=== PATIENT | male | born 1995 | race Caucasian/White ===

== ENCOUNTER 2023-09-29 17:13 | Emergency (ER) | payer SELFPAY ==
[2023-09-29 17:16] VITALS: BP 147/93; PULSE 82; RESP 16; TEMP 36.6; O2SAT 99; BMI 28.8
--- NOTE | 2023-09-29 17:26 | ED_ITS ---
HPI - Abdominal Pain General Chief Complaint: Abdominal Pain Stated Complaint: Abdominal Pain Time Seen by Provider: 09/29/23 17:19 Source: patient Mode of arrival: walk-in History of Present Illness HPI narrative: 27-year-old male presents to the emergency department for abdominal pain. He states he's had it most of his life and it's in the epigastric area. He stuck his family doctor about it but never saw specialist. No trauma or fever. No constipation or diarrhea. He's been taking Pepcid and Pepto-Bismol and sometimes it helps. No fever chest pain or cough. He doesn't complain of back pain or dysuria. Related Data Home Medications Medication Instructions Recorded Confirmed No Known Home Medications 09/29/23 09/29/23 Allergies Allergy/AdvReac Type Severity Reaction Status Date / Time No Known Drug Allergies Allergy Verified 09/29/23 17:16 Review of Systems ROS Narrative A ten point review of systems is negative except as noted above. Exam Narrative Exam Narrative: Nurses note and vital signs reviewed and patient is not hypoxic. General: The patient appears well and in no apparent distress. Patient is resting comfortably on cart. Skin: Warm, dry, no pallor noted. There is no rash noted. Head: Normocephalic, atraumatic Eye: Normal conjunctiva, no drainage Ears, Nose, Mouth, and Throat: oral mucosa is moist. Nares patent. Cardiovascular: Regular Rate and Rhythm Respiratory: Patient is in no distress, no accessory muscle use, lungs are clear to auscultation, no wheezing, rales or rhonchi Back: non-tender GI: Normal bowel sounds, minimal tenderness to palpation across the upper abdomen, no masses appreciated. No rebound, guarding, or rigidity noted. Musculoskeletal: The patient has no evidence of calf tenderness, no pitting edema, symmetrical pulses noted bilaterally Neurological: A&O, normal speech Psychiatric: Cooperative Constitutional Vital Signs, click to edit/add: Last Vital Signs Temp 97.9 F 09/29/23 17:16 Pulse 82 09/29/23 17:16 Resp 16 09/29/23 17:16 BP 147/93 H 09/29/23 17:16 Pulse Ox 99 09/29/23 17:16 O2 Del Method Room Air 09/29/23 17:16 Course Vital Signs Vital signs: Vital Signs Temperature 97.9 F 09/29/23 17:16 Pulse Rate 82 09/29/23 17:16 Respiratory Rate 16 09/29/23 17:16 Blood Pressure 147/93 H 09/29/23 17:16 Pulse Oximetry 99 09/29/23 17:16 Oxygen Delivery Method Room Air 09/29/23 17:16 Temperature 97.9 F 09/29/23 17:16 Pulse Rate 82 09/29/23 17:16 Respiratory Rate 16 09/29/23 17:16 Blood Pressure 147/93 H 09/29/23 17:16 Pulse Oximetry 99 09/29/23 17:16 Oxygen Delivery Method Room Air 09/29/23 17:16 MDM - Abdominal Pain MDM Narrative Medical decision making narrative: his workup is negative. He's had this pain most of his life and he is referred to surgery for follow-up. He's never had endoscopy. Treatment diagnosis and follow-up were discussed with the patient. Differential Diagnosis Differential diagnosis: Likely abdominal pain, constipation, diverticulitis, gastroenteritis and pancreatitis Lab Data Attestation: I reviewed the patient's lab results. Labs: Lab Results 09/29/23 Range/Units 17:25 WBC 9.9 (4.0-11.0) 10^3/uL RBC 4.57 L (4.70-6.10) 10^6/uL Hgb 14.8 (14.0-18.0) g/dL Hct 43.0 (42.0-54.0) % MCV 94.1 H (80.0-94.0) fL MCH 32.4 (25.9-34.0) pg MCHC 34.4 (29.9-35.2) g/dL RDW 12.3 (11.0-15.0) % Plt Count 245 (150-450) 10^3/uL MPV 11.7 (9.5-13.5) fL Neut % (Auto) 64.0 (43.0-75.0) % Lymph % (Auto) 27.9 (20.5-60.0) % [place] % (Auto) 6.9 (1.7-12.0) % Eos % (Auto) 0.7 L (0.9-7.0) % Baso % (Auto) 0.3 (0.2-2.0) % Neut # (Auto) 6.3 (1.4-6.5) 10^3/uL Lymph # (Auto) 2.8 (1.2-3.8) 10^3/uL [place] # (Auto) 0.7 (0.3-0.8) 10^3/uL Eos # (Auto) 0.1 (0.0-0.7) 10^3/uL Baso # (Auto) 0.0 (0.0-0.1) 10^3/uL Abs Immat Gran (auto) 0.02 (0.00-0.03) 10^3/uL Imm/Tot Granulo (auto) 0.2 (0.0-0.5) % Sodium 140 (136-145) mmol/L Potassium 3.5 (3.5-5.1) mmol/L Chloride 103 (98-107) mmol/L Carbon Dioxide 27.0 (21.0-32.0) mmol/L Anion Gap 13.5 BUN 5.0 L (7.0-18.0) mg/dL Creatinine 0.87 (0.70-1.30) mg/dL Est GFR ( Amer) >60 (>=60) Est GFR (Non-Af Amer) >60 (>=60) BUN/Creatinine Ratio 5.7 Glucose 92 (74-106) mg/dL Calcium 8.7 (8.5-10.1) mg/dL Total Bilirubin 1.0 (0.2-1.0) mg/dL Direct Bilirubin 0.2 (0.0-0.2) mg/dL AST 10 L (15-37) U/L ALT 17 (16-63) U/L Alkaline Phosphatase 58 (46-116) U/L Total Protein 8.1 (6.4-8.2) g/dL Albumin 4.2 (3.4-5.0) g/dL Globulin 3.9 g/dL Albumin/Globulin Ratio 1.1 Amylase 25 (25-115) U/L Lipase 16.0 (16.0-77.0) U/L Discharge Plan Discharge Chief Complaint: Abdominal Pain Clinical Impression: Abdominal pain Patient Disposition: Home, Self-Care Time of Disposition Decision: 18:04 Condition: Good Prescriptions / Home Meds: No Action No Known Home Medications Instructions: Abdominal Pain (ED) Additional Instructions: and follow-up with Dr. White Stand Alone Forms: Portal Instructions Referrals: Physician,Non-Staff, MD [Primary Care Provider] - 1 week
[2023-09-29 17:32] LABS: Basophils Percent Auto 0.3 % (0.2-2.0); Eosinophils Absolute Auto 0.1 10^3/uL (0.0-0.7); Eosinophils Percent Auto 0.7 % (0.9-7.0); Hemoglobin 14.8 g/dL (14.0-18.0); Immature Granulocytes Abs Auto 0.02 10^3/uL (0.00-0.03); Immature Granulocytes Pct Auto 0.2 % (0.0-0.5); Lymphocytes Absolute Auto 2.8 10^3/uL (1.2-3.8); Lymphocytes Percent Auto 27.9 % (20.5-60.0); Mean Corpuscular HGB Conc 34.4 g/dL (29.9-35.2); Mean Corpuscular Hemoglobin 32.4 pg (25.9-34.0); Mean Corpuscular Volume 94.1 fL (80.0-94.0); Mean Platelet Volume 11.7 fL (9.5-13.5); Monocytes Absolute Auto 0.7 10^3/uL (0.3-0.8); Monocytes Percent Auto 6.9 % (1.7-12.0); Neutrophils Absolute Auto 6.3 10^3/uL (1.4-6.5); Platelet Count 245 10^3/uL (150-450); Red Blood Count 4.57 10^6/uL (4.70-6.10); Red Cell Distribution Width 12.3 % (11.0-15.0); White Blood Count 9.9 10^3/uL (4.0-11.0)
[2023-09-29 17:57] LABS: Alanine Aminotransferase 17 U/L (16-63); Albumin Globulin Ratio 1.1; Albumin Level 4.2 g/dL (3.4-5.0); Alkaline Phosphatase 58 U/L (46-116); Amylase 25 U/L (25-115); Anion Gap 13.5; Aspartate Amino Transferase 10 U/L (15-37); BUN Creatinine Ratio 5.7; Bilirubin Direct 0.2 mg/dL (0.0-0.2); Calcium 8.7 mg/dL (8.5-10.1); Chloride 103 mmol/L (98-107); Estimated GFR (African America >60 (>=60); Estimated GFR (Non-African Ame >60 (>=60); Globulin 3.9 g/dL; Glucose 92 mg/dL (74-106); Potassium 3.5 mmol/L (3.5-5.1); Sodium 140 mmol/L (136-145); Total Protein 8.1 g/dL (6.4-8.2)
[2023-09-29 18:12] VITALS: BP 141/91; PULSE 64; RESP 18; O2SAT 99
== END 2023-09-29 18:15 | disposition home or self-care (01) ==
PROVIDERS: Emergency Provider Emergency Medicine
DX: R10.9 Unspecified abdominal pain (principal)
CPT/HCPCS: 36415; 80048; 80076; 82150; 83690; 85025; 99283

== ENCOUNTER 2024-01-20 10:08 | Emergency (ER) | payer SELFPAY ==
[2024-01-20 10:19] VITALS: BP 130/79; PULSE 81; RESP 18; TEMP 37.2; O2SAT 98; BMI 28.9
--- OUTSIDE RECORDS SUMMARY | 2024-01-20 10:44 | XMS_ITS | CCD ---
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 Name Role Phone DR MOIZ PRICE Admitting Unavailable ROSY, DR VERA Primary Care Unavailable DEE, DR MOIZ Harp Attending Unavailable DEE, DR MOIZ Harp Consulting Unavailable JORY ULLOA Consulting Unavailable ROSY, DR VERA Primary Care Unavailable DEE, DR MOIZ Harp Attending Unavailable DEE, DR MOIZ Harp Consulting Unavailable DR MOIZ PRICE Admitting Unavailable Allergies Allergy Classification Reported Allergen(s) Allergy Type Date of Onset Reaction(s) Facility Anti-Epileptic Agents (2 sources) Phenytoin; Translations: [Tegretol] Drug Allergy 5 [facility] Methylphenidate (1 source) Methylphenidate Drug Allergy 5 [facility] Problems Active Problems Problem Classification Problem Date Documented Da te Episodic/Chronic Mood disorders (1 source) Major depressive disorder, single episode, unspecified; Translations: [YAZAN DEPRESS D/O SINGLE EPIS UNS] Onset: 04-07-2021 Chronic Open wounds of extremities (2 sources) Laceration without foreign body of left wrist, initial encounter; Translations: [Laceration without foreign body of left forearm, initial encounter] Onset: 05-31-2020 Episodic Substance-related disorders (1 source) Nicotine dependence, cigarettes, uncomplicated; Translations: [NICOTINE DEPEND CIGARETTES UNCOMP] Onset: 04-07-2021 Chronic Suicide and intentional self-inflicted injury (5 sources) Suicidal ideations; Translations: [Intentional self-harm by knife, initial encounter] Onset: 04-05-2021 Episodic Unclassified (1 source) CONTACT W/AND (SUSP) EXPOS COVID-19; Translations: [CONTACT W/AND (SUSP) EXPOS COVID-19] Onset: 04-07-2021 Past or Other Problems Problem Classification Problem Date Documented Da te Episodic/Chronic E Codes: Fall (1 source) Other fall on same level, initial encounter; Translations: [OTHER FALL ON SAME LEVEL INITIAL] Onset: 05-31-2020 Episodic Immunizations and screening for infectious disease (1 source) Encounter for immunization; Translations: [ENCOUNTER FOR IMMUNIZATION] Onset: 05-31-2020 Episodic Other injuries and conditions due to external causes (3 sources) Unspecified injury of left shoulder and upper arm, initial encounter; Translations: [UNS INJ LT SHOULDER UP ARM INITIAL] Onset: 05-30-2020 Episodic Results Test Name Value Interpretation Reference Range Facility ECG 12 lead ECGon 05-22-2021 ECG 12 lead ECG [facility] [address] [place] [id number] Electrocardiograph Report Signed Patient: Joey Long MR#: [id number] : 1995 Acct:[id number] Age/Sex: 25 / M ADM Date: 05/22/21 Loc: Room: [address] [place] [address] Type: ADM IN Attending Dr: Efra Ruiz MD Ordering Provider: Efra Ruiz MD Date of Service: 05/22/21 ECG/ECG 12 lead ECG: anti psychotic treatment Copies to: Test Reason : Blood Pressure : / mmHG Vent. Rate : 063 BPM Atrial Rate : 063 BPM P-R Int : 156 ms QRS Dur : 098 ms QT Int : 414 ms P-R-T Axes : 067 068 062 degrees QTc Int : 423 ms Normal sinus rhythm Normal ECG No previous ECGs available Confirmed by HERMELINDA BAKER DO ([id number]) on 05/22/2021 12:49:22 PM Referred By: Electronically Signed By:HERMELINDA BAKER DO Transcribed By: MUS Dictated By: Hermelinda Baker DO 05/22/21 0802 Signed By: 05/22/21 1249 Normal [facility] Lipid Panelon 05-22-2021 Cholesterol [Mass/Vol] 157 mg/dL Normal 140-200 [facility] Comment on above: Result Comment: Chol less than 200 mg/dl low risk Chol 201-239 mg/dl borderline risk Chol 240 mg/dl and greater high risk Performed By: #### V [id number], TSH3 wRFLX, LIPID #### [facility] [address] Cholesterol in HDL [Mass/Vol] 43 mg/dL Normal 29-71 [facility] Comment on above: Result Comment: HDL CHOL ATP-III CLASSIFICATION Cardiovascular Risk HDL > or equal to 60 mg/dL LOW HDL < 40 mg/dL HIGH Performed By: #### V [id number], TSH3 wRFLX, LIPID #### [facility] [address] Cholesterol.total/Cho lesterol in HDL [Mass ratio] 3.7 {ratio} Normal <5.0 [facility] Comment on above: Performed By: #### V [id number], TSH3 wRFLX, LIPID #### [facility] [address] LDL Cholesterol,Calculate d 99 mg/dL Normal 0-100 [facility] Comment on above: Result Comment: LDL ATP III CLASSIFICATION LDL less than 100 mg/dL Optimal LDL 100-129 mg/dL Near or above optimal LDL 130-159 mg/dL Borderline high LDL 160-189 mg/dL High LDL greater than 189 mg/dL Very high Performed By: #### V [id number], TSH3 wRFLX, LIPID #### [facility] [address] Triglyceride w/Reflex 75 mg/dL Normal 35-149 [facility] Comment on above: Result Comment: TRIG ATP III CLASSIFICATION TRIG less than 150 mg/dL Normal TRIG 150-199 mg/dL Borderline high TRIG 200-500 mg/dL High TRIG greater than 500 mg/dL Very high Standard traceable to the Center for Disease Conrtrol and Prevention (CDC) test method. Performed By: #### V [id number], TSH3 wRFLX, LIPID #### [facility] [address] [place] [id number] [facility] VLDL CHOLESTEROL 15 mg/dL Normal [facility] Comment on above: Performed By: #### V [id number], TSH3 wRFLX, LIPID #### [facility] [address] [place] [id number] [facility] Thyroid Stim Hormone w/Rflxo n 05-22-2021 Thyroid Stim Hormone w/Rflx 1.47 u[iU]/mL Normal 0.45-5.33 [facility] Comment on above: Performed By: #### V [id number], TSH3 wRFLX, LIPID #### [facility] [address] [place] [id number] [facility] Vitamin D 25 Hydroxy Totalon 05-22-2021 Vitamin D 25 Hydroxy Total 21.8 ng/mL Low 30-100 [facility] Comment on above: Result Comment: FARIDA MIN D STATUS 25(OH)VITAMIN D RANGE (ng/mL) Deficient <20 Insufficient 20 to <30 Sufficient 30 to 100 Reference: Beau MF,Abel MERIDA, Cheryl CANALES, et al. Evaluation,treatment, and prevention of vitamin D deficiency; an Endocrine Society clinical practice guideline. JCEM. 2010; 96(7):1911-30. PERFORMED BY: [address] [place] [address] PATHOLOGIST RAP ARTIST ARNOLD RUDOLPH M.D. Performed By: #### V [id number], TSH3 wRFLX, LIPID #### [facility] [address] [place] [id number] [facility] COVID-19 Antigenon 1 COVID-19 Antigen Healthcare Worker?: N Lloyd Reference Lloyd Reference Negative SARS-CoV+SARS-CoV-2 (COVID-19) Ag [Presence] in Respiratory specimen by Rapid immunoassay Negative for SARS Antigen by RHONDA COVID19 Blank Space Lloyd Disclaimer Negative results, from patients with symptom Lloyd Disclaimer onset beyond five days, should be treated as Lloyd Disclaimer presumptive and confirmation with a molecular Lloyd Disclaimer assay, if necessary, for patient management, Lloyd Disclaimer may be performed. Negative results do not rule Lloyd Disclaimer out COVID-19 and should not be used as the sole Lloyd Disclaimer basis for treatment or patient management Lloyd Disclaimer decisions, including infection control decisions. Lloyd Disclaimer Negative results should be considered in the Lloyd Disclaimer context of a patient's recent exposures, history Lloyd Disclaimer and the presence of clinical signs and symptoms Lloyd Disclaimer consistent with COVID-19. COVID19 Blank Space Lloyd Disclaimer The Lloyd SARS Antigen RHONDA does not differentiate Lloyd Disclaimer between SARS-CoV and SARS-CoV-2. COVID19 Blank Space Lloyd Disclaimer This test was developed and its performance Lloyd Disclaimer characteristic determined by [employer] and Lloyd Disclaimer validated at [facility]. This Lloyd Disclaimer test has not been FDA cleared or approved. This Lloyd Disclaimer test has been authorized by FDA under an Emergency Use Lloyd Disclaimer Authorization (EUA). This test has been validated Lloyd Disclaimer in accordance with the FDA's Guidance Document (Policy Lloyd Disclaimer for Diagnostics Testing in Laboratories Certified to Lloyd Disclaimer Perform High Complexity Testing under CLIA prior to Lloyd Disclaimer Emergency Use Authorization for Coronavirus Lloyd Disclaimer during the Public Health Emergency) Lloyd Disclaimer issued on February 25, 2020. This test is only authorized Lloyd Disclaimer for the duration of time the declaration that Lloyd Disclaimer circumstances exist justifying the authorization of Lloyd Disclaimer the emergency use of in vitro diagnostic tests for Lloyd Disclaimer detection of SARS-CoV-2 virus and/or diagnosis of Lloyd Disclaimer COVID-19 infection under section 564(b)(1) of the Lloyd Disclaimer Act, 21 U.S.C. 360bbb-3(b)(1), unless the Lloyd Disclaimer authorization is terminated or revoked sooner. PERFORMED BY: [place] [address] PATHOLOGIST RAP ARTIST ARNOLD RUDOLPH M.D. Normal [facility] Comment on above: Performed By: #### C OVID-19 TODD DESAI #### [facility] [address] Lipid Panelon 04-06-2021 Cholesterol [Mass/Vol] 214 mg/dL High 140-200 [facility] Comment on above: Result Comment: Chol less than 200 mg/dl low risk Chol 201-239 mg/dl borderline risk Chol 240 mg/dl and greater high risk Performed By: #### V [id number], CHUCK, LIPID, TSH3 wRFLX #### [facility] [address] [place] [address] Cholesterol in HDL [Mass/Vol] 48 mg/dL Normal 29-71 [facility] Comment on above: Result Comment: HDL CHOL ATP-III CLASSIFICATION Cardiovascular Risk HDL > or equal to 60 mg/dL LOW HDL < 40 mg/dL HIGH Performed By: #### V [id number], CHUCK, LIPID, TSH3 wRFLX #### [facility] [address] [place] [address] Cholesterol.total/Cho lesterol in HDL [Mass ratio] 4.5 {ratio} Normal <5.0 [facility] Comment on above: Performed By: #### V [id number], CHUCK, LIPID, TSH3 wRFLX #### [facility] [address] [place] [address] LDL Cholesterol,Calculate d 152 mg/dL High 0-100 [facility] Comment on above: Result Comment: LDL ATP III CLASSIFICATION LDL less than 100 mg/dL Optimal LDL 100-129 mg/dL Near or above optimal LDL 130-159 mg/dL Borderline high LDL 160-189 mg/dL High LDL greater than 189 mg/dL Very high Performed By: #### V [id number], CHUCK, LIPID, TSH3 wRFLX #### [facility] [address] Triglyceride w/Reflex 70 mg/dL Normal 35-149 [facility] Comment on above: Result Comment: TRIG ATP III CLASSIFICATION TRIG less than 150 mg/dL Normal TRIG 150-199 mg/dL Borderline high TRIG 200-500 mg/dL High TRIG greater than 500 mg/dL Very high Standard traceable to the Center for Disease Conrtrol and Prevention (CDC) test method. Performed By: #### V [id number], CHUCK, LIPID, TSH3 wRFLX #### [address] VLDL CHOLESTEROL 14 mg/dL Normal [facility] Comment on above: Performed By: #### V [id number], CHUCK, LIPID, TSH3 wRFLX #### [address] Salicylateon 04-06-2021 Salicylate < 4.0 Low 15.0-30.0 [facility] Comment on above: Result Comment: Erika ents treated with Sulfasalazine may generate a false high result for Salicylate. Patients treated with Sulfapyridine may generate a false low result for Salicylate. PERFORMED BY: [place] [address] PATHOLOGIST RAP ARTIST ARNOLD RUDOLPH M.D. Performed By: #### V [id number], CHUCK, LIPID, TSH3 wRFLX #### [address] Lloyd Ag Negativeon 04-06-20 21 Lloyd Ag Negative Negative Normal Negative [facility] Comment on above: Result Comment: This is a duplicate Lloyd SARS Antigen (RHNODA) result to be used for statistical tracking purpose only. PERFORMED BY: [place] [address] PATHOLOGIST RAP ARTIST ARNOLD RUDOLPH M.D. Performed By: #### C OVID-19 LLOYD, SOFIANEG #### [address] Thyroid Stim Hormone w/Rflxo n 04-06-2021 Thyroid Stim Hormone w/Rflx 2.74 u[iU]/mL Normal 0.45-5.33 [facility] Comment on above: Performed By: #### V [id number], CHUCK, LIPID, TSH3 wRFLX #### [facility] [address] [id number] [facility] Vitamin D 25 Hydroxy Totalon 04-06-2021 Vitamin D 25 Hydroxy Total 12.0 ng/mL Low 30-100 [facility] Comment on above: Result Comment: FARIDA MIN D STATUS 25(OH)VITAMIN D RANGE (ng/mL) Deficient <20 Insufficient 20 to <30 Sufficient 30 to 100 Reference: Beau MF,Abel NC, Cheryl CANALES, et al. Evaluation,treatment, and prevention of vitamin D deficiency; an Endocrine Society clinical practice guideline. JCEM. 2010; 96(7):1911-30. PERFORMED BY: [place] [address] PATHOLOGIST RAP ARTIST ARNOLD RUDOLPH M.D. Performed By: #### V [id number], CHUCK, LIPID, TSH3 wRFLX #### [facility] [address] [place] [address] ACETAMINOPHENon 04-05-2021 Acetaminophen [Mass/Vol] ug/mL Critically low 10.1-30.0 [facility] Comment on above: Performed By: #### E TH, CMP, ACET, SALYC #### [facility] [address] [place] [address] Erica Beena CBC AUTO DIFFon 04-05-2021 BASO # 0.0 103/ul Normal 0.0-0.1 [facility] Comment on above: Performed By: #### C BC #### [facility] [address] [place], [place] [phone] Erica Beena Basophils/100 WBC (Bld) 0.4 % Normal 0.2-2.0 [facility] Comment on above: Performed By: #### C BC #### [facility] [address] [place] [address] Erica Beena EO # 0.1 103/ul Normal 0.0-0.7 [facility] Comment on above: Performed By: #### C BC #### [facility] [address] [place], [place] [phone] Erica Beena Eosinophils/100 WBC (Bld) 1.7 % Normal 0.9-7.0 [facility] Comment on above: Performed By: #### C BC #### [facility] [address] [place] [address] Erica Hargrove Erythrocyte distribution width (RBC) [Ratio] 12.6 % Normal 11.0-15.0 [facility] Comment on above: Performed By: #### C BC #### [facility] [address] [place] [address] Erica Hargrove Hematocrit (Bld) [Volume fraction] 44.8 % Normal 42.0-54.0 [facility] Comment on above: Performed By: #### C BC #### [facility] [address] [place] [address] Erica Hargrove Hemoglobin (Bld) [Mass/Vol] 15.5 g/dL Normal 14.0-18.0 [facility] Comment on above: Performed By: #### C BC #### [facility] [address] [place] [address] Ericaeamon Hargrove IG # 0.05 10e3/ul Critically high 0.00-0.03 [facility] Comment on above: Performed By: #### C BC #### [facility] [address] [place] [address] Erica Hargrove IG % 0.6 % Critically high 0.0-0.5 [facility] Comment on above: Performed By: #### C BC #### [facility] [address] [place] [address] Erica Hargrove LYMPH # 2.3 103/ul Normal 1.2-3.8 [facility] Comment on above: Performed By: #### C BC #### [facility] [address] [place] [address] Erica Hargrove Lymphocytes/100 WBC (Bld) 26.7 % Normal 20.5-60.0 [facility] Comment on above: Performed By: #### C BC #### [facility] [address] [place] [address] Erica Hargrove MANUAL DIFF REQ NO Normal [facility] Comment on above: Performed By: #### C BC #### [facility] [address] [place], [place] [address] Ericaeamon Hargrove MCH (RBC) [Entitic mass] 30.9 pg Normal 25.9-34.0 [facility] Comment on above: Performed By: #### C BC #### [facility] [address] [place], [place] [address] Ericaeamon Hargrove MCHC (RBC) [Mass/Vol] 34.6 g/dL Normal 29.9-35.2 [facility] Comment on above: Performed By: #### C BC #### [facility] [address] [place] [id number] Erica Beena MCV (RBC) [Entitic vol] 89.2 fL Normal 80.0-94.0 [facility] Comment on above: Performed By: #### C BC #### [facility] [address] [place], [place] [phone] Erica Beena MONO # 0.7 103/ul Normal 0.3-0.8 [facility] Comment on above: Performed By: #### C BC #### [facility] [address] [place], [place] [phone] Erica Beena Monocytes/100 WBC (Bld) 8.5 % Normal 1.7-12.0 [facility] Comment on above: Performed By: #### C BC #### [facility] [address] [place], [place] [phone] Erica Beena NEUT # 5.3 103/ul Normal 1.4-6.5 [facility] Comment on above: Performed By: #### C BC #### [facility] [address] [place], [place] [phone] Erica Beena Neutrophils/100 WBC (Bld) 62.1 % Normal 43.0-75.0 [facility] Comment on above: Performed By: #### C BC #### [facility] [address] [place], [place] [phone] Erica Beena Platelet mean volume (Bld) [Entitic vol] 11.7 fL Normal 9.5-13.5 [facility] Comment on above: Performed By: #### C BC #### [facility] [address] [place] [address] Erica Hargrove PLT 230 103/ul Normal 150-450 [facility] Comment on above: Performed By: #### C BC #### [facility] [address] [place], [place] [phone] Erica Hargrove RBC 5.02 106/ul Normal 4.70-6.10 [facility] Comment on above: Performed By: #### C BC #### [facility] [address] [place], [place] [phone] Erica Hargrove WBC 8.5 103/ul Normal 4.0-11.0 [facility] Comment on above: Performed By: #### C BC #### [facility] [address] [place] [address] Erica Hargrove Covid-19 PCR (CVDTB)on 03-25 Sample Type Test performed using RT-PCR from a nasopharyngeal collected specimen. Normal [facility] Comment on above: Performed By: #### C VDTBH #### [facility] [address] [place] [address] Erica Hargrove SARS-CoV-2 (COVID-19) RNA FLOR+probe Ql (Unsp spec) Not detected Normal NOT DETECTED [facility] Comment on above: Result Comment: This test is not yet approved or cleared by the [place] FDA. When there are no FDA-approved or cleared tests available, and other criteria are met, FDA can make tests available under an emergency access mechanism called an Emergency Use Authorization (EUA). The EUA for this test is supported by the Internal Revenue Service Agent of Health and Human Service's (HHS's) declaration that circumstances exist to justify the emergency use of in vitro diagnostics for the detection and/or diagnosis of the virus that causes COVID-19. This EUA will remain in effect (meaning this test can be used) for the duration of the COVID-19 declaration justifying emergency of IVDs, unless it is terminated or revoked by FDA (after which the test may no longer be used). When diagnostic testing is negative, the possibility of a false negative should be considered in the context of a patient's recent exposures and the presence of clinical signs and symptoms consistent with SARS-CoV-2. Performed By: #### C VDTBH #### [facility] [address] [place] [address] Erica Beena DRUG SCREEN RAPID (URINE)on 04-05-2021 AMP Negative Normal NEGATIVE [facility] Comment on above: Performed By: #### D BETTY, ERUR #### [facility] [address] [place] [address] Erica Beena BAR Negative Normal NEGATIVE [facility] Comment on above: Performed By: #### D BETTY, ERUR #### [facility] [address] [place] [address] Erica Beena BUP Negative Normal NEGATIVE [facility] Comment on above: Performed By: #### D BETTY, ERUR #### [facility] [address] [place] [address] Erica Beena BZO Negative Normal NEGATIVE [facility] Comment on above: Performed By: #### D BETTY, ERUR #### [facility] [address] [place] [address] Erica Beena ELSI Negative Normal NEGATIVE [facility] Comment on above: Performed By: #### D BETTY, ERUR #### [facility] [address] [place] [address] Erica Beena CUT-OFFS SEE BELOW Normal [facility] Comment on above: Result Comment: AMP (Amphetamine): 500ng/mL, BAR (Barbituates): 200 ng/mL, BZO (Benzodiazepines): 150 ng/mL, BUP (Buprenorphine): 10 ng/mL, ELSI (Cocaine): 150 ng/mL, mAMP (Methamphetamine): 500 ng/mL, MTD (Methadone): 200 ng/mL, OPI (Opiates): 100 ng/mL, OXY (Oxycodone): 100 ng/mL, PCP (Phencyclidine): 25 ng/mL, PPX (Propoxyphene): 300 ng/mL, THC (Cannabinoids): 50 ng/mL, TCA (Trycyclic Antidepressants): 300 ng/mL Performed By: #### D BETTY, ERUR #### [facility] [address] [place] [address] Erica Beena DRUG CUT HEADER DRUG CLASS TEST SYSTEM CUT-OFF CONCENTRATIONS ARE FOLLOWS: Normal [facility] Comment on above: Performed By: #### D BETTY, ERUR #### [facility] [address] [place] [address] Erica Beena mAMP Negative Normal NEGATIVE [facility] Comment on above: Performed By: #### D BETTY, ERUR #### [facility] [address] [place] [address] Erica Beena MTD Negative Normal NEGATIVE [facility] Comment on above: Performed By: #### D BETTY, ERUR #### [facility] [address] [place] [address] Erica Beena OPI Negative Normal NEGATIVE [facility] Comment on above: Performed By: #### Nacho HERNÁNDEZ, ERUR #### [facility] [address] [place] [address] Erica Beena OXY Negative Normal NEGATIVE [facility] Comment on above: Performed By: #### D BETTY, ERUR #### [facility] [address] [place] [address] Erica Beena PCP Negative Normal NEGATIVE [facility] Comment on above: Performed By: #### D BETTY, ERUR #### [facility] [address] [place] [address] Erica Beena PPX Negative Normal NEGATIVE [facility] Comment on above: Performed By: #### Nacho HERNÁNDEZ, ERUR #### [facility] [address] [place] [address] Erica Beena TCA Negative Normal NEGATIVE [facility] Comment on above: Performed By: #### Nacho HERNÁNDEZ, ERUR #### [facility] [address] [place] [address] Erica Beena THC Positive Abnormal NEGATIVE [facility] Comment on above: Performed By: #### Nacho HERNÁNDEZ, ERUR #### [facility] [address] [place] [address] Erica Beena ER URINE PROFILEon 1 Bilirubin Ql (U) Negative Normal NEGATIVE [facility] Comment on above: Performed By: #### Nacho HERNÁNDEZ, ERUR #### [facility] [address] [place], [place] [phone] Erica Beena Clarity (U) CLEAR Normal CLEAR [facility] Comment on above: Performed By: #### Nacho HERNÁNDEZ, ERUR #### [facility] [address] [place] [phone] Erica Beena Color (U) LT. YELLOW Normal YELLOW [facility] [facility] Comment on above: Performed By: #### Nacho HERNÁNDEZ, ERUR #### [facility] [address] [place], [place] [id number] Erica Beena ERUAHD A micrscopic examination will be performed if indicated. Normal [facility] Comment on above: Performed By: #### Nacho HERNÁNDEZ, ERUR #### [facility] [address] [place], [place] [id number] Erica Beena Glucose Ql (U) Negative Normal NEGATIVE [facility] Comment on above: Performed By: #### Nacho HERNÁNDEZ, ERUR #### [facility] [address] [place], [place] [id number] Erica Beena Hemoglobin Ql (U) Negative Normal NEGATIVE [facility] Comment on above: Performed By: #### Nacho HERNÁNDEZ, ERUR #### [facility] [address] [place] [address] Erica Beena Ketones Ql (U) Negative Normal NEGATIVE [facility] Comment on above: Performed By: #### Nacho HERNÁNDEZ, ERUR #### [facility] [address] [place], [place] [id number] Erica Beena LEUKOCYTES Negative Normal NEGATIVE [facility] Comment on above: Performed By: #### Nacho HERNÁNDEZ, ERUR #### [facility] [address] [place], [place] [id number] Erica Beena Nitrite Ql (U) Negative Normal NEGATIVE [facility] Comment on above: Performed By: #### Nacho HERNÁNDEZ, ERUR #### [facility] [address] [place], [place] [phone] Erica Beena pH (U) 6.0 [pH] Normal 5-9 [facility] Comment on above: Performed By: #### D FORTUNATO HERNÁNDEZR #### [facility] [address] [place] [address] Erica Hargrove SPEC GRAVITY 1.010 Normal 1.005-<=1.025 [facility] Comment on above: Performed By: #### D BETTY, FORTUNATOR #### [facility] [address] [place] [address] Erica Hargrove UA PROTEIN Negative Normal NEGATIVE/ TRACE [facility] Comment on above: Performed By: #### D DIONICIO HERNÁNDEZ #### [facility] [address] [place] [address] Erica Hargrove UR MICRO IND NOT INDICATED Normal [facility] Comment on above: Performed By: #### D BETTY, FORTUNATOR #### [facility] [address] [place] [address] Erica Hargrove Urobilinogen Qn (U) 0.2 {Cordelia'U}/dL Normal 0.2 - 1. 0 [facility] Comment on above: Performed By: #### D DIONICIO HERNÁNDEZ #### [facility] [address] [place] [address] Erica Hargrove ETHANOL (BLD ALC)on 04-05-20 21 ALC NOTE NOTE: 80 mg/dl is the legal limit for a blood alcohol level Normal [facility] Comment on above: Performed By: #### E TH, CMP, ACET, SALYC #### [facility] [address] [place] [address] Erica Hargrove Ethanol [Mass/Vol] mg/dL Normal [facility] [place] Comment on above: Performed By: #### E TH, CMP, ACET, SALYC #### [facility] [address] [place] [address] Erica Josephen PROF 14(COMP METB)on 021 Albumin [Mass/Vol] 3.8 g/dL Normal 3.5-5.0 [facility] Comment on above: Performed By: #### E TH, CMP, ACET, SALYC #### [facility] [address] [id number] Erica Beena Albumin/Globulin [Mass ratio] 0.9 {ratio} Normal [facility] Comment on above: Performed By: #### E TH, CMP, ACET, SALYC #### [facility] [address] [place] [address] Erica Beena ALP [Catalytic activity/Vol] 48 U/L Normal 38-126 [facility] Comment on above: Performed By: #### E TH, CMP, ACET, SALYC #### [facility] [address] [place] [address] Erica Beena ALT [Catalytic activity/Vol] 36 U/L Normal 21-72 [facility] Comment on above: Performed By: #### E TH, CMP, ACET, SALYC #### [facility] [address] [place] [address] Erica Beena Anion gap [Moles/Vol] 13.2 mmol/L Normal [facility] Comment on above: Performed By: #### E TH, CMP, ACET, SALYC #### [facility] [address] [place] [address] Erica Beena AST [Catalytic activity/Vol] 19 U/L Normal 17-59 [facility] Comment on above: Performed By: #### E TH, CMP, ACET, SALYC #### [facility] [address] [place] [address] Erica Benea Bilirubin [Mass/Vol] 0.5 mg/dL Normal 0.2-1.3 [facility] Comment on above: Performed By: #### E TH, CMP, ACET, SALYC #### [facility] [address] [place], [place] [phone] Erica Beena Calcium [Mass/Vol] 8.9 mg/dL Normal 8.4-10.2 [facility] Comment on above: Performed By: #### E TH, CMP, ACET, SALYC #### [facility] [address] [place], [place] [phone] Erica Beena Chloride [Moles/Vol] 101 mmol/L Normal 98-107 [facility] Comment on above: Performed By: #### E TH, CMP, ACET, SALYC #### [facility] [address] [place] [address] Erica Beena CO2 [Moles/Vol] 27.2 mmol/L Normal 22.0-30.0 [facility] Comment on above: Performed By: #### E TH, CMP, ACET, SALYC #### [facility] [address] [place] [address] Erica Beena Creatinine [Mass/Vol] 0.90 mg/dL Normal 0.66-1.25 [facility] Comment on above: Performed By: #### E TH, CMP, ACET, SALYC #### [facility] [address] [place] [address] Erica Beena EGFR-AF [place]LANDER >60 Normal >=60 [facility] Comment on above: Performed By: #### E , CMP, ACET, SALYC #### [facility] [address] [place] [address] Erica Beena EGFR-NON AF [place]ER >60 Normal >=60 [facility] Comment on above: Performed By: #### E , CMP, ACET, SALYC #### [facility] [address] [place] [address] Erica Beena Globulin (S) [Mass/Vol] 4.3 g/dL Normal [facility] Comment on above: Performed By: #### E TH, CMP, ACET, SALYC #### [facility] [address] [place] [address] Erica Beena Glucose [Mass/Vol] 108 mg/dL Critically high 74-106 [facility] Comment on above: Result Comment: gluc ose being calibrated Previously reported as: 0 On 04/05/2021 20:45 By JAW Performed By: #### E TH, CMP, ACET, SALYC #### [facility] [address] [place] [address] Erica Beena Potassium [Moles/Vol] 3.4 mmol/L Normal 3.4-5.0 [facility] Comment on above: Performed By: #### E TH, CMP, ACET, SALYC #### [facility] [address] [address] Erica Beena Protein [Mass/Vol] 8.1 g/dL Normal 6.1-8.2 [facility] Comment on above: Performed By: #### E TH, CMP, ACET, SALYC #### [facility] [address] [place] [address] Erica Beena Sodium [Moles/Vol] 138 mmol/L Normal 137-145 [facility] [place] Comment on above: Performed By: #### E TH, CMP, ACET, SALYC #### [facility] [address] [place] [address] Erica Beena Urea nitrogen [Mass/Vol] 15.0 mg/dL Normal 9.0-20.0 [facility] Comment on above: Performed By: #### E TH, CMP, ACET, SALYC #### [facility] [address] [place] [address] Ericaeamon Josephen Urea nitrogen/Creatinine [Mass ratio] 16.7 mg/mg Normal [facility] Comment on above: Performed By: #### E TH, CMP, ACET, SALYC #### [facility] [address] [place], [place] [phone] Erica Hargrove RAPID COVID-19 ANTIGENon EUA Statement SEE BELOW Normal [facility] Comment on above: Result Comment: This test has not been FDA cleared or approved, but has been authorized by the FDA under an Emergency Use Authorization (EUA) for use by authorized laboratories certified under CLIA that meet the requirements to perform moderate or high complexity testing. This test has been authorized only for the detection of proteins from SARS-CoV-2, not for any other viruses or pathogens. The emergency use of this test is authorized for the duration of the declaration that circumstances exist justifying the authorization of emergency use of in vitro diagnostic tests for detection and/or diagnosis of Covid-19 under section 564(b)(1) of the Act, 21 U.S.C. 360bbb-3(b)(1), unless the declaration is terminated or authorization is revoked sooner. Performed By: #### C VDAG #### [facility] [address] [place], [place] [address] Erica Hargrove SARS-CoV-2 (COVID-19) RNA FLOR+probe Ql (Unsp spec) Negative Normal NEGATIVE [facility] Comment on above: Result Comment: Nega tive results are presumptive. They do not preclude infection and should not be used as the sole basis for treatment decisions. Additional confirmatory testing by a molecular method should be considered. Performed By: #### C VDAG #### [facility] [address] [place], [place] [address] Erica Hargrove SALICYLATEon 04-05-2021 SALICYLATE 1.9 mg/dL Normal <=20.0 [facility] Comment on above: Performed By: #### E TH, CMP, ACET, SALYC #### [facility] [address] [place], [place] [address] Erica Hargrove Encounters Encounter Date Encounter Type Care Provider Facility Start: 04-05-2021 End: 04-06-[address] MOIZ PRICE Facility:[facility] Start: 05-30-2020 End: 05-30-[address] DOCTOR GALLEGOS Facility:[facility] Payers Date Payer Category Payer Unknown [id number] 1996 Unknown [id number] 1958 Medicaid [id number] 1958 Self-pay [id number] Summary Purpose Family History No Family History Records FoundNo Family History Records Found Advance Directives No Advanced Directives Records FoundNo Advanced Directives Records Found Additional Source Comments (unrecognized sect ion and content) No Status Records FoundNo Status Records Found INFORMATION SOURCE (unrecogn ized section and content) DATE CREATED AUTHOR 05/11/2021 [facility] DATE CREATED AUTHOR AUTHOR'S ORGANIZ ATION 12/12/2021 [facility] FOR RECORDS PERTAINING TO PATIENTS WHO ARE OR HAVE BEEN ENROLLED IN A CHEMICAL DEPENDENCY/SUBSTANCEABUSE PROGRAM, SOME INFORMATION MAY BE OMITTED. This clinical summary was aggregated from multiple sources. Caution should be exercised in using it in the provision of clinical care. This summary normalizes information from multiple sources, and as a consequence, information in this document may materially change the coding, format and clinical context of patient data. In addition, data may be omitted in some cases. CLINICAL DECISIONS SHOULD BE BASED ON THE PRIMARY CLINICAL RECORDS. [facility]. provides no warranty or guarantee of the accuracy or completeness of information in this document.
--- NOTE | 2024-01-20 12:42 | ED_ITS ---
HPI - Abdominal Pain General Chief Complaint: Abdominal Pain Stated Complaint: ABDOMINAL PAIN Time Seen by Provider: 01/20/24 10:24 Source: patient and family Mode of arrival: walk-in Limitations: no limitations History of Present Illness HPI narrative: The patient presenting with at least a month history of epigastric discomfort that comes mostly when eating specific food also comes on sometimes with stress the patient denies any nausea or vomiting any blood in stool. He does not have primary care doctor he does not take his Nexium daily Related Data Previous Rx's Medication Instructions Recorded esomeprazole magnesium 40 mg 40 mg PO DAILY 28 days #28 caps 09/29/23 capsule,delayed release (Nexium) famotidine 20 mg tablet (Pepcid) 20 mg PO BID #10 tabs 01/20/24 Allergies Allergy/AdvReac Type Severity Reaction Status Date / Time No Known Drug Allergies Allergy Verified 09/29/23 17:16 Review of Systems ROS Status of ROS 10 or more systems reviewed and unremark able except as noted in history and below PFSH PFSH Social History Smoking status: Current every day smoker Exam Narrative Exam Narrative: Nurses notes and vital signs reviewed and patient is not hypoxic. General: Well-appearing and in no apparent distress. Skin: Warm, dry, no pallor noted. No rash. Head: Normocephalic, atraumatic. Neck: Supple, non-tender. Eye: Pupils are equal, round and EOMI. No scleral icterus. Ears, Nose, Mouth, and Throat: TM are clear, no nasal mucosal hypertrophy. Oral mucosa is moist, no posterior oropharynx erythema, uvula is mid-line Cardiovascular: Regular Rate and Rhythm without murmur, gallop or rub. Respiratory: No accessory muscle use or respiratory distress. Lungs are clear to auscultation, no wheezing, rales or rhonchi Chest Wall: no tenderness Back: No midline thoracic or lumbar vertebral tenderness. No CVA tenderness Musculoskeletal: normal ROM, no calf or popliteal tenderness, no lower extremity edema/swelling GI: Abdomen is soft, non-distended. Normal bowel sounds. No masses appreciated. No tenderness to palpation. No rebound, guarding, or rigidity noted. Neurological: A&O x4. No cranial nerve dysfunction observed. No truncal ataxia. Moves all extremities. Sensation intact. Psychiatric: Cooperative and interactive. Normal mood and affect. Constitutional Vital Signs, click to edit/add: Last Vital Signs Temp 99.0 F 01/20/24 10:19 Pulse 81 01/20/24 10:19 Resp 18 01/20/24 10:19 BP 130/79 01/20/24 10:19 Pulse Ox 98 01/20/24 10:19 O2 Del Method Room Air 01/20/24 10:19 Course Vital Signs Vital signs: Vital Signs Temperature 99.0 F 01/20/24 10:19 Pulse Rate 81 01/20/24 10:19 Respiratory Rate 18 01/20/24 10:19 Blood Pressure 130/79 01/20/24 10:19 Pulse Oximetry 98 01/20/24 10:19 Oxygen Delivery Method Room Air 01/20/24 10:19 Temperature 99.0 F 01/20/24 10:19 Pulse Rate 81 01/20/24 10:19 Respiratory Rate 18 01/20/24 10:19 Blood Pressure 130/79 01/20/24 10:19 Pulse Oximetry 98 01/20/24 10:19 Oxygen Delivery Method Room Air 01/20/24 10:19 MDM - Abdominal Pain MDM Narrative Medical decision making narrative: Is mostlyThe patient not presenting with any acute symptoms to his secondary to gastritis or possible acid reflux and that I did explain to him that proper lifestyle modification in addition to the referred to the outpatient clinic and starting Pepcid and Nexium daily for the next 5 days and then he can continue only on Nexium. The patient to monitor his symptoms he is to follow-up with his doctor within a week for further evaluation management and come back in case of new symptoms The patient is to follow up with primary care physician in next 2-3 days or to return to the emergency department should any of the signs or symptoms worsen or new symptoms develop. The patient agrees with the following Diagnosis and Treatment plan and the patient will be discharged home. Discharge Plan Discharge Chief Complaint: Abdominal Pain Clinical Impression: Gastritis Qualifiers: Gastritis type: other gastritis Chronicity: acute Gastritis bleeding: without bleeding Qualified Code(s): K29.00 - Acute gastritis without bleeding Patient Disposition: Home, Self-Care Time of Disposition Decision: 10:47 Condition: Good Prescriptions / Home Meds: New famotidine [Pepcid] 20 mg tablet 20 mg PO BID Qty: 10 0RF Continued esomeprazole magnesium [Nexium] 40 mg capsule,delayed release(DR/EC) 40 mg PO DAILY 28 Days Qty: 28 0RF Instructions: Diet for Stomach Ulcers and Gastritis (ED), GERD (Gastroesophageal Reflux Disease) (DC) Stand Alone Forms: Portal Instructions Referrals: Physician,Non-Staff, MD [Primary Care Provider] - 1 week Discharge Date/Time: 01/20/24 11:03
== END 2024-01-20 11:03 | disposition home or self-care (01) ==
PROVIDERS: Emergency Provider Emergency Medicine
DX: K29.00 Acute gastritis without bleeding (principal); F17.200 Nicotine dependence, unspecified, uncomplicated
CPT/HCPCS: 99283